=== PATIENT | male | born 1950 | race Caucasian/White ===

== ENCOUNTER 2019-02-17 13:54 | Outpatient (CLI) ==
[2019-02-17 18:08] VITALS: BMI 39.6
== END 2019-02-17 13:58 | disposition critical access hospital (66) ==
LOC: AMBL 13:54
PROVIDERS: ATTEND Emergency Medicine
DX: R06.9 Unspecified abnormalities of breathing (principal); R53.1 Weakness; M54.5 Low back pain; G89.29 Other chronic pain; R63.0 Anorexia; R00.0 Tachycardia, unspecified; E11.65 Type 2 diabetes mellitus with hyperglycemia

== ENCOUNTER 2019-02-17 14:06 | Observation (INO) | payer OTHER ==
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
[2019-02-17] MEDS ORDERED: CATAPRES PO STA (15:17)
[2019-02-17] MEDS ORDERED: DUONEB NEB STA (15:18)
--- NOTE | 2019-02-17 15:40 | DI ---
EXAM: Chest two views HISTORY: Shortness of breath, cough COMPARISON: None TECHNIQUE: Two views of the chest were performed FINDINGS: The lungs are clear. There is no pleural effusion or pneumothorax. The heart is normal i n size. The mediastinal contour is normal, noting atherosclerosis. There are no acute abnormalities of the bones. IMPRESSION: No acute cardiopulmonary process.
[2019-02-17 18:08] VITALS: BMI 39.6
[2019-02-17] MEDS ORDERED: METOPROLOL SUCCINATE 200 MG PO SCH (21:30)
[2019-02-17] MEDS ORDERED: NON-FORMULARY MEDICATION (Metoprolol Succinate [Metoprolol Succinate] 100 MG) PO SCH (22:15)
[2019-02-17] MEDS ORDERED: TOPROL XL PO SCH (22:30)
[2019-02-18] MEDS ORDERED: NON-FORMULARY MEDICATION (Glipizide [Glipizide] 10 MG) PO SCH (06:30)
[2019-02-18] MEDS ORDERED: NON-FORMULARY MEDICATION (Metformin Hcl [Metformin Hcl] 500 MG) PO SCH (08:00)
[2019-02-18] MEDS ORDERED: FLUTICASONE FUROATE IH SCH (09:00)
[2019-02-18] MEDS ORDERED: NON-FORMULARY MEDICATION (Furosemide [Furosemide] 40 MG) PO SCH ×2 (09:00→14:00)
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
[2019-02-18] MEDS: NON-FORMULARY MEDICATION (Albuterol Sulfate [Proair Hfa] 2 PUFF) IH PRN ×2 (09:30→17:18)
[2019-02-18] MEDS: DIVALPROEX SODIUM 500 MG PO SCH ×2 (09:30→20:57)
[2019-02-18] MEDS: LEVOTHYROXINE SODIUM 50 MCG PO SCH (09:32)
[2019-02-18] MEDS: NON-FORMULARY MEDICATION (Metoprolol Succinate [Metoprolol Succinate] 100 MG) PO SCH (09:33)
[2019-02-18] MEDS: AZELASTINE HCL NS SCH ×2 (09:35→20:56)
[2019-02-18] MEDS: NON-FORMULARY MEDICATION (Glipizide [Glipizide] 10 MG) PO SCH ×2 (09:35→17:04)
[2019-02-18] MEDS: FLUTICASONE PROPIONATE NS SCH (09:36)
[2019-02-18] MEDS: NORVASC PO SCH (09:40)
[2019-02-18] MEDS: LOTENSIN PO SCH (09:41)
--- NOTE | 2019-02-18 09:59 | HP ---
DATE OF SERVICE: 02/17/19 SOURCE OF HISTORY: The patient is not able to give good details of the history. HISTORY OF PRESENT ILLNESS: I asked him why he ended up in the emergency room and he told me that he had been in the room for the last five days and had not had any food. He was told not to get out of the room. He did not have any oxygen already at home as well as some of his medications. I told him how he got in touch with Destini and he told me that he called all the numbers and he has listed it down. He had called Medicare, Medicaid and ended up with Destini Robbie. The name of the individual that was attached to Destini Avalos is Simona. He was given a calling card and the sap manager was Radha. Destini Avalos was supposed to come tomorrow but boyfriend of his daughter was going to throw him out of the house and so she did come to the house. He seemed to have some altercation or exchange of words with the boyfriend of the daughter, Balbina Singletary and so the Destini Avalos individual did call the police. This patient was then brought to the emergency room. I asked him why he did not take his medications but he told me that his medications had to be taken with food and he didn't have any food for the last five days. He survived on poptarts as well as koolaid. The patient had a chest x-ray in the emergency room showing no acute cardiopulmonary processes. Blood pressure was quite elevated 222/120. Labs showed moderate anemia, 11.8 gm of hemoglobin, hematocrit 36.8, MCV 81.2, MCH 26 , RDW 13.4, platelet count normal 325,000, WBC 6,910. Electrolytes are acceptable although slightly below normal. BUN 5.7, creatinine 0.49, estimated GFR 170, blood sugar 155. NT-Pro-BNP normal, procalcitonin less than 0.05. Amylase normal. Influenza A and B was negative. The patient was given Clonidine because of the hypertension 0.1 mg p.o. and Duoneb nebulizer once. He was then admitted. PAST PERSONAL HISTORY: The patient claimed to be diagnosed with diabetes more than 10 years ago, hypertension several years ago, hypothyroidism, dyslipidemia, seizure disorder, COPD, GERD, headaches and coma, unsure why he was in a coma. He fell against a bulldozer and had injury to the right knee as well as right ankle fracture. The ankle fracture was treated with open reduction/internal fixation and the right knee was treated with arthroscopic examination. The patient also admitted to smoking and stopped when he was 17 years of age because of hemoptysis. Also had abused alcohol as well as drugs and was placed on rehab but did not stay. FAMILY HISTORY: Father had carcinoma of the intestine as well as diabetes. Mother also had carcinoma of the breast as well as diabetes. SOCIAL HISTORY: The patient's status is or single is not quite clear. He said he had been several times and had not had a permanent address. He was and had two children, both of them were girls and they are now in [facility] and he does not have any communication with them. No communication with the mother of all the children. He again got and had two children, a boy and a girl. The girl is Balbina, lives in [place] and one is in [place], a boy. His ex- lives in [place]. His ex- and Balbina, his daughter, have no communications with each other. He recently moved to [place] from around [place], [place] and is a town nearby. He resided with his mother until his mother and some three months ago. His daughter invited him to come down and indeed drove him down with his belongings. The son who lives in [place]. I advised him not to come down since his son had lived with them before some time ago. He came to [place] about two weeks ago or thereabouts and then the last five days he was told to stay in the room and never to get out. He claimed that he did not have adequate food and survived on Poptarts as well as Koolaid. At this point, I was interrupted by the nurse, Kaelyn, that Mr. Singletary son is on the phone. The son wanted to know whether his father was admitted but he did not want to talk to him. Kaelyn did ask the father whether she could talk to him as well as me and Mr. Singletary did give verbal permission. I did talk to the son and his name is Balta Rodriguez and did ask him why his last name is different and he told me that his mother got to Mr. Singletary and his sister is a biological daughter of Mr. Singletary with his mother. I also tried to verify the story that Mr. Singletary told me that his son, Balta lived with his sister and advised him not to come down when he was invited by his sister to come down. He told me that his son is now in [place]. I did try to verify that and asked him what part of [place] he lives and he said he is in [facility]. His name is Balta Rodriguez but the phone ID is Arian Montes. Balta did give me the phone number of his aunt, Rae [phone]. I asked Kaelyn to ask Mr. Singletary if it is okay to talk to his sister and again, he gave verbal consent to that. I asked Balta where his mother is and he thought his mother lives in [place] but Mr. Singletary said that his ex- is in [place]. I informed Balta that it would be hard for Mr. Singletary to take public transportation she he is not able to walk and too, he has oxygen. He told me that someone would have to come and pick him up and that is when he gave me the phone number of his aunt and he said his uncle can pick him up and I told him that Mr. Singletary told me that his brother does not have a license and Balta told me that that is not the uncle that he is thinking about. MEDICATIONS: (PRIOR TO ADMISSION - READING FROM THE LIST OF MEDICATION HE HAD, WAS PRINTED 01/08/19 @ 257 P.M., SOURCE i DON'T KNOW) Albuterol SFA two puffs every 4 to 6 hours as needed for wheezing, Amlodipine/ Benazepril 10-40 one cap daily, Lipitor 20 mg daily, Azelastine nasal spray 0.1 % one spray two each nostril twice a day, Clotrimazole 10 mg lozenge take one by mouth three times a day, Depakote delayed release one twice a day, Nexium 40 mg capsule daily, Fluticasone 50 mcg two spray to the nostril one time a day, Lasix 40 mg daily, Glipizide 10 mg twice a day before meals, Levothyroxine 50 mcg daily, Magnesium Oxide 400 mg twice a day, Metformin 500 mg twice a day, Metoprolol Succinate 200 mg a day, multivitamins with minerals one daily, Orphenadrine 100 mg ER q.12hr, Sodium Chloride nasal spray 0.65% p.r.n. The patient did run out of some of the medication marked "X" out, multivitamins, Metoprolol, Glipizide, Furosemide, Lipitor, Amlodipine plus Benazepril. ALLERGIES: ASPIRIN REVIEW OF SYSTEMS: CONSTITUTIONAL: The patient had no fever, no chills. Significant fatigue although he had not been eating regular meals for the last four to five days according to him. LANDSCAPING SPECIALIST: The patient had some headaches, intermittent. No syncopal episode although he had a history of coma, cause unknown, history of seizure but not seizure activity this time. VISUAL: Denies any double vision or transient loss of vision. AUDITORY: The patient is able to hear well and denies any tinnitus, pain or drainage. RESPIRATORY: The patient has cough, repetitive, maybe post nasal drainage. Denies any sore throat. No hemoptysis. The patient does have shortness of breath. The patient was diagnosed to have COPD. Also possible asthma. CARDIOVASCULAR: Denies any chest pain or chest tightness or oppression. No nausea. GASTROINTESTINAL: The patient claimed to have some difficulty swallowing food and had been for several months. He claims that he has to grind the meat. He was eating before swallowing. His doctor had known of this and began to make some diagnostic exams but had not been completed. I asked him if he had lost any weight since the problem and he told me that he did lose some. This patient 's BMI is still high at 39.6. We can get some records from the doctors tomorrow then we can probably ask also on his weight, maybe one year ago. GENITOURINARY: The patient denies any pain on urination or urgency. MUSCULOSKELETAL: The patient does have pain in the knee as well as the ankle from previous injury., He had fracture of the lower leg to the ankle on the right side and injury several years ago and was treated with open reduction with internal fixation and also arthroscopic procedure on the right knee. The patient has some back problems. He uses a walker to help ambulate. INTEGUMENT: The patient does not have any rash or pruritus but has discoloration of the lower third of the leg just above the ankle, more discolored on the right than the left. There are no ulcerations noted. ENDOCRINE: Denies any polyuria or polydipsia. The patient however had been diagnosed with diabetes mellitus more than 10 years ago. HEMATOLOGIC: Denies any prolonged bleeding or spontaneous bleeding. No spontaneous ecchymosis. PSYCHIATRIC: Affect is normal. The patient admits to being claustrophobic. He seemed to be verbal and is more or less talking continuously. PHYSICAL EXAMINATION: GENERAL: 68-year-old male admitted to the hospital for 1) hypertension, that is uncontrolled; 2) he has not been able to take his medications, situational problems at home, shortness of breath. The patient did run out of his oxygen at home. History and physical obtained was in the presence of the registered nurse, Nelda. VITAL SIGNS: On admission to the floor, 5:38 p.m. on 02/17/19: Temperature 98.3 oral, pulse 100, blood pressure 172/82, was given Clonidine 0.1 mg p.o. in the emergency room. Respiratory rate 20. Oxygen saturation 91 on room air. He was weighed at 260 lbs and 11.2 ozs. Height was provided by him. BMI 39.6. HEAD: Unremarkable. Scalp: No active dermatitis. Face: Symmetrical and equal with no facial weakness and no redness. The frontal and maxillary sinus areas are nontender to palpation and/or pressure. EYES: Pupils equal/reactive to light about 5 mm in size and round. Conjunctivae somewhat pale. Sclerae not icteric. MOUTH: Unremarkable. THROAT: No inflammation, no exudate. NECK: No masses. No bruit. No remarkable. tenderness. CHEST: Essentially symmetrical and equal with good expansion. LUNGS: Breath sounds are diminished on both sides with expiratory wheezing and/ or rales. HEART: Audible, slightly irregular and no murmurs. . ABDOMEN: Protuberant, soft with no remarkable tenderness. No guarding. Bowel sounds are active. No masses palpable. EXTERNAL GENITALIA: Not examined. RECTAL: Not performed. LOWER EXTREMITIES: Essentially symmetrical and equal with some edema, minimal of both legs with marked discoloration of lower third of the legs more on the right than the left probably secondary to venous congestion. Pedal pulses are absent. UPPER EXTREMITIES: Symmetrical and equal. ASSESSMENT: 1. HYPERTENSION, UNCONTROLLED. 2. DIABETES MELLITUS, UNCONTROLLED. 3. PROBLEMS OBTAINING AND TAKING MEDICATIONS FOR HIS PROBLEMS. 4. RESIDENTIAL DIFFICULTIES. 5. HISTORY OF COPD. 6. HISTORY OF ASTHMA, QUESTIONABLE. 7. HISTORY OF SEIZURE DISORDER. 8. HISTORY OF GERD. 9. HISTORY OF HYPERTHYROIDISM. 10. HISTORY OF DYSLIPIDEMIA. 11. HISTORY OF MIGRAINE. 12. EPISODE OF COMA, THE PATIENT DOES NOT KNOW WHY. 13. HISTORY OF RIGHT ANKLE FRACTURE TREATED WITH OPEN REDUCTION WITH INTERNAL FIXATION, RIGHT KNEE INJURY, TREATED WITH ARTHROSCOPIC PROCEDURE. 14. PERIPHERAL ARTERIAL DISEASE, ABSENT TIBIAL PULSES. BILATERAL LOWER LEG DISCOLORATION PROBABLY SECONDARY TO VENOUS INSUFFICIENCY. 15. ELEVATED BMI 39.6. 16. HISTORY OF DYSPHAGIA. HE TOLD ME THAT A DOCTOR TRIED TO HAVE A BARIUM EXAMINATION AND THE BARIUM WAS NOT GOING THROUGH AND VOMITS OR COMES BACK UP. IF THAT IS TRUE, THIS PATIENT WOULD HAVE LOST A SIGNIFICANT AMOUNT OF WEIGHT SINCE IT HAD BEEN ONGOING FOR SEVERAL MONTHS. THIS PATIENT HOWEVER NEEDED TO BE INVESTIGATED BUT SINCE HE IS GOING BACK [place] THAT HE SHOULD HAVE AND THIS WILL BE EXPLAINED TO HIM THAT HE SHOULD GET IN TOUCH WITH THE DOCTOR THAT HE WAS GOING TO BEFORE. PROGNOSIS: GUARDED TIME SPENT: GREATER THAN 65 MINUTES MTDD
[2019-02-18] MEDS ORDERED: LASIX TAB PO SCH (12:30)
[2019-02-18] MEDS: LASIX TAB PO SCH (13:43)
[2019-02-18] MEDS: NON-FORMULARY MEDICATION (Metformin Hcl [Metformin Hcl] 500 MG) PO SCH (17:11)
[2019-02-19] MEDS: LASIX TAB PO SCH (05:56)
[2019-02-19] MEDS: LEVOTHYROXINE SODIUM 50 MCG PO SCH (05:56)
[2019-02-19] MEDS: NON-FORMULARY MEDICATION (Glipizide [Glipizide] 10 MG) PO SCH (09:25)
[2019-02-19] MEDS: NORVASC PO SCH (09:25)
[2019-02-19] MEDS: LOTENSIN PO SCH (09:25)
[2019-02-19] MEDS: NON-FORMULARY MEDICATION (Metoprolol Succinate [Metoprolol Succinate] 100 MG) PO SCH (09:26)
[2019-02-19] MEDS: DIVALPROEX SODIUM 500 MG PO SCH ×2 (09:26→20:27)
[2019-02-19] MEDS: AZELASTINE HCL NS SCH ×2 (09:27→20:26)
[2019-02-19] MEDS: FLUTICASONE PROPIONATE NS SCH (09:27)
[2019-02-19] MEDS: NON-FORMULARY MEDICATION (Metformin Hcl [Metformin Hcl] 500 MG) PO SCH ×2 (09:31→16:29)
--- NOTE | 2019-02-19 14:23 | PN ---
DATE OF SERVICE: 02/18/19 SUBJECTIVE: Overall the patient is doing much better. His appetite is very well. Dr. Menard did speak with his son about a discharge plan. His vital signs are improving at 4:53 a.m. today. His temperature was 97.6, pulse rate 66, blood pressure 172/ 100. His 02 sat was 99% on 2L/NC. At 10 a.m. his blood pressure had come down to 180/90 with a pulse rate of 80. His lungs were clear but diminished. His heart rate was regular normal sinus rhythm. His lower extremities are chris - this is chronic for him. He does have 1+ edema which is chronic. Dr. Ramirez does plan to do a Dobutamine stress echo on 02/19/18 to further evaluate chest pain. Dr. Menard did discuss a discharge plan with Case Management and she does plan to call the sister today to further evaluate regarding a discharge plan. JESSY
[2019-02-19] MEDS: NON-FORMULARY MEDICATION (Esomeprazole Magnesium [Nexium] 40 MG) PO SCH (16:28)
[2019-02-19] MEDS: NON-FORMULARY MEDICATION (Albuterol Sulfate [Proair Hfa] 2 PUFF) IH PRN (18:22)
[2019-02-19] MEDS: K-DUR PO SCH (20:26)
[2019-02-20] MEDS: LASIX TAB PO SCH (05:57)
[2019-02-20] MEDS: LEVOTHYROXINE SODIUM 50 MCG PO SCH (05:58)
[2019-02-20] MEDS: NON-FORMULARY MEDICATION (Esomeprazole Magnesium [Nexium] 40 MG) PO SCH (05:58)
[2019-02-20] MEDS ORDERED: ATROPINE SULFATE PFS ONE (07:07)
[2019-02-20] MEDS ORDERED: DOBUTAMINE 500 MG-D5W 250 ML 250 ML IV ONE (07:07)
[2019-02-20] MEDS ORDERED: NON-FORMULARY MEDICATION (Glipizide [Glipizide] 10 MG) PO SCH (08:00)
--- NOTE | 2019-02-20 09:20 | DOBSTECHST ---
Ordering Physician: DR. RODRIGUEZ Date of Test: 02/20/2019 Reason for Examination: CHEST PAIN, HYPERTENSION Smoking History: QUIT AT 17YR OLD Height: 68" Weight: 260 Current Medications: FLONASE, ORPHENADRINE CITRATE, MULTIVITAMIN, METOPROLOL SUCCINATE, METFORMIN HCL, MAGNESIUM OXIDE, LEVOTHYROXINE SODIUM, GLOPIZIDE, FUROSEMIDE, NEXIUM, DIVALPROEZ SODIUM, CLOTRIMAZOLE, PROAIR HFA, ASTELIN, ATORVASTATIN CALCIUM, AMLODIPINE BESYLATE/BENAZEPRIL Target Heart Rate: 130 / 154 SaO2: 97% AT REST ON 2LPM GLAUCOMA: NOT SURE S-T Segment Stage Time HR BPM BP MMHG Rhythm +/- Elevation Depression Symptoms Control Sitting 73 124/80 SR X NONE Dobutamine 250mg/D5W 5cmg/KG/mn 10cmg/KG/mn 3" 82 138/60 SR X NONE 15cmg/KG/mn 2" 96 148/52 SR X NONE 20cmg/KG/mn 2" 107 148/52 SR X NONE 25cmg/KG/mn 2" 104 138/56 SR X NONE 30cmg/KG/mn 1:35 104 SR X NONE 35cmg/KG/mn 40cmg/KG/mn 2 MIN POST INFUSION z 99 SR X NONE 5 MIN POST INFUSION z 98 116/58 SR X NONE DURATION OF INFUSION 10 MINUTES AND 35 SECONDS MAXIMUM HEART RATE REACHED 111 98% OXYGEN SATURATION ON 2LPM WITH DOBUTAMINE INFUSION Interpretation: 1. BORDERLINE ISCHEMIA BY ST-T WAVE CHANGES FROM RESTING HEART RATE OF 73BPM RESTING TO 111 BPM WITH DOBUTAMINE INFUSION 2. NO CHEST PAIN OR DISCOMFORT 3. LEFT VENTRICULAR CONTRACTILITY RESTING AND WITH DOBUTAMINE INFUSION-NORMAL 4. SESTAMIBI TO FOLLOW MTDD
--- NOTE | 2019-02-20 09:24 | ECHO2D ---
Date of Exam: 02/19/2019 Ordering Physician: DR. RODRIGUEZ Room #: 119 Reason for Echo: CHEST PAIN, HYPERTENSION M-Mode Normal Adult Results LV Dimensions Normal Adult Results AoV Opening excursions >1.6 >1.6 LVEDD-base- 3.5-5.8 4.3 Ao root dimensions 2.0-3.7 3.7 LVESD-base- 3.1-4.6 L. Atrium dimensions 1.9-3.8 4.7 Post. Wall thickness 0.8-1.1 1.5 IV septum (thickness) 0.7-1.2 1.6 Post. Wall excursion 0.72-1.3 NORMAL Septal motion NORMAL Systolic motion R. Ventricular cavity 1.5-2.0 NORMAL LVEF 60% 66% Paradoxical septal wall motion NORMAL 2-D : ENLARGED LEFT ATRIAL CAVITY OTHERWISE NORMAL 2-D M Mode Echocardiogram was performed using apical four chamber and left parasternal long and short axis views. Mitral, tricuspid and aortic valves appear to be normal. Contractility of the left ventricle seems to be normal, so is the cavity size. Enlarged left atrial cavity size. Aortic root appears to be normal. There is no pericardial effusion. There is no thrombus noted in the left ventricular or left aortic cavity. No mitral valve prolapse noted. M-MODE: MV: NORMAL AV: NORMAL TV: NORMAL PV: CHAMBER SIZE: ENLARGED LEFT ATRIAL CAVITY WALL MOTION: NORMAL PERICARDIUM: NORMAL INTERPRETATION: 1. MODERATE LEFT VENTRICULAR HYPERTROPHY WITH ENLARGED LEFT ATRIAL CAVITY 2. NORMAL LEFT VENTRICULAR CONTRACTILITY 3. NORMAL VALVES MTDD
--- NOTE | 2019-02-20 09:27 | ECHOSTRESS ---
Date of Exam: 02/20/2019 Ordering Physician: DR. RODRIGUEZ Reason for Echo: CHEST PAIN, HYPERTENSION, DOBUATMINE STRESS=BORDERLINE ISCHEMIC ST-T WAVE CHANGES M-Mode Normal Adult Results LV Dimensions Normal Adult Results AoV Opening excursions >1.6 LVEDD-base- 3.5-5.8 Ao root dimensions 2.0-3.7 LVESD-base- 3.1-4.6 L. Atrium dimensions 1.9-3.8 Post. Wall thickness 0.8-1.1 IV septum (thickness) 0.7-1.2 Post. Wall excursion 0.72-1.3 Septal motion Systolic motion R. Ventricular cavity 1.5-2.0 LVEF 60% Paradoxical septal wall motion 2-D: NORMAL LEFT VENTRICULAR CONTRACTILITY RESTING AND WITH DOBUTAMINE INFUSION M-MODE: MV: AV: TV: PV: CHAMBER SIZE: WALL MOTION: NORMAL LEFT VENTRICULAR CONTRACTILITY RESTING AND WITH DOBUTAMINE INFUSION PERICARDIUM: INTERPRETATION: 1. NORMAL LEFT VENTRICULAR CONTRACTILITY RESTING AND WITH DOBUTAMINE INFUSION MTDD
[2019-02-20] MEDS: K-DUR PO SCH (10:03)
[2019-02-20] MEDS: LOTENSIN PO SCH (10:03)
[2019-02-20] MEDS: NORVASC PO SCH (10:03)
[2019-02-20] MEDS: AZELASTINE HCL NS SCH ×2 (10:04→21:20)
[2019-02-20] MEDS: FLUTICASONE PROPIONATE NS SCH (10:04)
[2019-02-20] MEDS: NON-FORMULARY MEDICATION (Metoprolol Succinate [Metoprolol Succinate] 100 MG) PO SCH (10:05)
[2019-02-20] MEDS: DIVALPROEX SODIUM 500 MG PO SCH ×2 (10:06→21:20)
[2019-02-20] MEDS: NON-FORMULARY MEDICATION (Metformin Hcl [Metformin Hcl] 500 MG) PO SCH (10:07)
--- NOTE | 2019-02-20 10:36 | NM ---
Exam: Cardiac stress test with SPECT imaging. Reason for exam: Chest pain with hypertension Comparison: None. Date of exam: 02/20/2019 Radiopharmaceutical: Rest: 12.5mCi Tc-99m Sestamibi i.v. Stress: 33.0mCi Tc-99m Sestamibi i.v. Dobutamine stress FINDINGS: Standard myocardial perfusion images were obtained after injection of technetium 99m sesta mibi under resting conditions The patient was then stressed with Dobutamine IV. Please see separate report by performing physician for details of the stress protocol Standard myocardial perfusion images were obtained after injection of technetium 99m sestamibi under stress conditions. Gated images were performed to evaluate left ventricular ejection fraction The stress perfusion images demonstrate a small region of mild to moderately decreased radiopharmaceu tical uptake in the inferior wall. The rest perfusion images demonstrate a small region of mildly decreased radiopharmaceutical uptake i n the inferior wall The left ventricular ejection fraction is calculated to be 77%. Impression: 1. There is a small region of mild severity, mostly reversible ischemia in the inferior wall that ma y be accentuated by technique. 2. Left ventricular ejection fraction measures 77%.
[2019-02-20] MEDS ORDERED: NITROSTAT SL PRN (12:39)
--- NOTE | 2019-02-20 13:25 | PN ---
DATE OF SERVICE: 02/19/19 SUBJECTIVE: The only complaints today is that he had reflux and requests for his Nexium to be restarted. He admits that he was not able to eat his lunch today because his reflux is so bad. His previous home medications were reviewed and he previously took Nexium 40 mg p.o. daily and he requested this to be restarted back. He did have blood work completed yesterday morning. He did not have any blood work done this morning. His hemoglobin/hematocrit was stable yesterday morning 11.3 and 34.8 and yesterday his BUN was 5.3, creatinine 0.53. His TSH yesterday was 7.30, however it was noted upon H & P that he had not been taking his medicines routinely as he was not able to. It will be recommended that TSH level be rechecked as an outpatient. OBJECTIVE: V/S: Temperature 97.6, pulse rate 70, blood pressure 146/75, 02 sat 100% on 2L/ NC. On exam today, he does have some faint congestion in the upper lobes. He does admit this is chronic for him. He tells me today that he was able to walk in the hallway without his oxygen and his oxygen level stayed in the upper 90's. He denies any increasing shortness of breath. He would like a puff of his Albuterol inhaler and I will let the nurse know about this. His heart is regular rate and rhythm. He does have some chronic lower extremity edema, bilateral lower extremities and his lower extremities are chris in appearance. The plan is for the patient to be transported by his niece, Payton, on Saturday to [place], [place] and this was told to me this morning by Dr. Menard. [facility]ALTH[facility]iana
[2019-02-20] MEDS: NON-FORMULARY MEDICATION (Metformin Hcl [Metformin Hcl] 1,000 MG) PO SCH (16:43)
[2019-02-20] MEDS: NON-FORMULARY MEDICATION (Albuterol Sulfate [Proair Hfa] 2 PUFF) IH PRN (17:17)
[2019-02-20] MEDS ORDERED: TOPROL XL PO SCH (21:00)
[2019-02-21] MEDS: LASIX TAB PO SCH (06:03)
[2019-02-21] MEDS: LEVOTHYROXINE SODIUM 50 MCG PO SCH (06:04)
[2019-02-21] MEDS: NON-FORMULARY MEDICATION (Esomeprazole Magnesium [Nexium] 40 MG) PO SCH (06:04)
[2019-02-21 06:16] VITALS: TEMP 98.2
[2019-02-21 06:27] VITALS: BP 140/68
[2019-02-21] MEDS: NORVASC PO SCH (08:13)
[2019-02-21] MEDS: LOTENSIN PO SCH (08:13)
[2019-02-21] MEDS: K-DUR PO SCH (08:13)
[2019-02-21] MEDS: NON-FORMULARY MEDICATION (Metformin Hcl [Metformin Hcl] 1,000 MG) PO SCH (08:14)
[2019-02-21] MEDS: DIVALPROEX SODIUM 500 MG PO SCH (08:14)
[2019-02-21] MEDS: NON-FORMULARY MEDICATION (Metoprolol Succinate [Metoprolol Succinate] 100 MG) PO SCH (08:15)
[2019-02-21] MEDS: AZELASTINE HCL NS SCH (08:17)
[2019-02-21] MEDS: FLUTICASONE PROPIONATE NS SCH (08:17)
[2019-02-21] MEDS: NON-FORMULARY MEDICATION (Albuterol Sulfate [Proair Hfa] 2 PUFF) IH PRN (08:19)
--- NOTE | 2019-02-26 11:39 | PN ---
DATE OF SERVICE: 02/20/19 SUBJECTIVE: The patient today is alert and oriented times four. Not dyspneic or tachypneic. He is looking forward to going home the next day. He does know that his niece, Payton is coming to pick him up. The patient does not desire to proceed with a cardiac workup in [place]. He just wants to go back to his home place in [place], [place]. LUNGS: Clear to auscultation in both sides although diminished HEART: Audible most regular. No murmurs ABDOMEN: Nontender, protuberant. Bowel sounds are active LOWER EXTREMITIES: No tenderness in the calf muscles We will get a CBC and Chemistry for tomorrow to review that prior to his discharge. JESSY
--- NOTE | 2019-03-02 11:25 | DS ---
DATE OF SERVICE: 02/21/19 PATIENT IDENTIFICATION: 68-year-old male who has recently moved to [place] two to three weeks ago. His daughter did pick him up around [place], [place] and brought his furniture to move in with his daughter. His daughter has a boyfriend. Things had not been going well and he was told to stay in the room and that had been for five days and claimed to have survived only on poptarts plus koolaid. The patient had called several agencies including [facility]. The phone numbers were provided by the son, Balta, who resides in [place], [place]. [facility] was going to see him on a Saturday but he was going to be thrown out of the house the day before and so [facility] did come and the patient was transported by Police to the hospital. The patient while in the emergency was found to have a significant hypertension 220/120, alert, oriented times four without any headaches or visual disturbances. He also was not confused. He had mentioned some chest pain. Cardiology consultation was requested and was seen by the emergency management consultant the following day, 02/18/19. Past history is listed in the History and Physical. Physical examination revealed a 68-year-old male who is quite talkative. He has movement of all extremities and he has no facial weakness. He denies any visual disturbances. Lungs - breath sounds are diminished on both sides with expiratory wheezing and some rales. Heart is audible and slightly irregular. No murmurs. Abdomen markedly protuberant, soft with no remarkable tenderness, no masses. Bowel sounds are active. Some ankle edema bilaterally. Pedal pulses are absent. The patient's labs and workup during this admission: CBC times four since admission until the day of discharge showed normal WBC, moderate anemia, iron deficiency most likely. CMP times four slightly lower electrolytes but no clinical significance. Carbon dioxide was slowly increasing and was 34.3 on discharge, 02/21/19. BUN normal as well as creatinine and EGFR calculated changed from 137 to 170. Blood sugar on admission was 155 and subsequent fasting blood sugar was 130, 131.2 and 130.8. His hemoglobin A1C on admission was 7.94. Fasting insulin level 17.5, plasma C-peptide is 4.9. The rest of the chemistries were unremarkable or normal and the procalcitonin is less than 0.05. TSH 7.300. Urinalysis unremarkable except for 1+ ketones, trace sugar and protein. Drug screen negative. KALEN 65 autoantibody less than 5.0 and influenza A and B by nuclear amplification are negative. Chest x-ray showed no acute cardiopulmonary processes. M-Mode echo today showed left ventricular ejection fraction 66%, valves normal. Wall motion normal as well as pericardium, enlarged left atrial cavity. Interpretation moderate left ventricular hypertrophy with enlarged left atrial cavity, normal left ventricular contractility, normal valves. Dobutamine stress borderline ischemia by ST-T wave changes, resting heart rate 73 to 111 beats/min. No chest pain or discomfort. Resting and exercise perfusion showed increased uptake in the inferior wall. It appears that the ischemia is persistent. Our emergency management consultant epidemiology internship had recommended further studies such as cardiac catheterization and referral to an in service educator but the patient declined to follow the instructions for now. He wanted to go back to [place], [place]. I also repeated that with him in the presence of a nurse. He told me that he is not going to see a epidemiology internship here and have a cardiac catheterization. His niece, Payton, is coming up to pick him up and would be in town about 12 to . She indeed came in and I saw the patient close to one o'clock and the patient was discharged to go to [place] or around there. This patient was instructed to continue his previous medications, that he needs to see the doctor as soon as he gets to his hometown. He also was advised to stop along the way if he has any problems and go to the emergency room. The patient, at time of discharge, was alert, ambulatory, cooperative and cheerful. He has movement of all extremities. He is not dyspneic or tachypneic. The lungs are clear to auscultation and both sides diminished and no wheezing. The heart is audible and regular. Vital signs at 6 a.m. 02/21/19 blood pressure 140/68, pulse - no oxygen saturation done. The patient is using oxygen and has oxygen with him during transport or travel to [place]. The patient does not have any chest pain or abdominal pain. He had 100% breakfast and 100% of lunch. FINAL DIAGNOSES: 1. HYPERTENSION, IMPROVED CONTROL. 2. DIABETES MELLITUS, SLIGHTLY UNCONTROLLED. 3. BORDERLINE STRESS TEST, ST SEGMENT DEPRESSION. 4. ELEVATED BMI. 5. HISTORY OF ASTHMA. 6. HISTORY OF SEIZURE DISORDER. 7. HISTORY OF GERD. 8. HISTORY OF HYPOTHYROIDISM. 9. HISTORY OF MIGRAINE HEADACHE. 10. HISTORY OF COMA EPISODE, CAUSE UNDETERMINED, MIGHT HAVE BEEN A POST SEIZURE PROBLEM. 11. PERIPHERAL ARTERIAL DISEASE, ABSENT TIBIAL PULSES. 12. BILATERAL LEG DISCOLORATION SECONDARY TO VENOUS INSUFFICIENCY. PROGNOSIS: GUARDED TIME SPENT: GREATER THAN 30 MINUTES MTDD
--- NOTE | 2019-03-02 14:30 | CONS ---
CONSULT FOLLOWUP DATE OF SERVICE: 02/19/19 SUBJECTIVE: The patient was seen and examined today. He is feeling alot better. His blood pressure is under control with systolic of 142. The patient is intelligent but noncompliant of his lifestyle, medications and followups with his primary care physician. This morning he had an echocardiogram done which showed normal LV size, normal LV contractility with LVH, enlarged LA cavity. REVIEW OF SYSTEMS: CONSTITUTIONAL: No night sweats. No fatigue, malaise, lethargy. No fever or chills. HEENT: Eyes: No visual changes. No eye pain. No eye discharge. ENT: No runny nose. No epistaxis. No sinus pain. No sore throat. No odynophagia. No congestion. RESPIRATORY: No cough, no congestion. No hemoptysis. No shortness of breath. CARDIOVASCULAR: No angina symptoms. No CHF symptoms. No atypical chest pain for CAD. No palpitations. No PND. No orthopnea. GASTROINTESTINAL: No abdominal pain. No nausea or vomiting. No diarrhea or constipation. No hematemesis. No hematochezia. GENITOURINARY: No urgency. No frequency. No dysuria. No hematuria. No obstructive symptoms. No discharge. No pain. No significant abnormal bleeding. MUSCULOSKELETAL: No musculoskeletal pain; no joint swelling. NEUROLOGICAL: No headache. No neck pain. No syncope. No seizures. No dizziness. PSYCHIATRIC: Not anxious. No depression. No suicidal thoughts. No homicidal thoughts. SKIN: No rash. No lesions. No wounds. ENDOCRINE: No unexplained weight loss. No weight gain. HEMATOLOGIC/LYMPHATIC: No anemia. No purpura. No petechiae. No prolonged or excessive bleeding. No palpable lymph nodes. PHYSICAL EXAMINATION: HEENT: Head normocephalic, atraumatic. Eyes: Extraocular muscles are intact. Pupils are equal, round and reactive to light and accommodation. Ears: No lesions. Nose appeared normal. Throat: No exudate or erythema. NECK: Supple. No JVD, no carotid bruit. No lymphadenopathy or thyromegaly. LUNGS: Clear to auscultation. Percussion note normal. Chest symmetrical. HEART: S1, S2, no S3. No murmurs. No cyanosis or clubbing. No ascites. Pulses: Dorsalis pedis and posterior tibial pulses +1 to +2 bilaterally. ABDOMEN: Soft. Nontender. Bowel sounds active. No CVA tenderness. No mass felt. EXTREMITIES: No edema. Full range of motion of all extremities, equal. NEUROLOGIC: No focal deficit. Cranial nerves II through XII are grossly intact. No headache, no double vision or headache. SKIN: Not dry. Intact. Turgor - normal. LYMPHATIC: No palpable lymph nodes/no lymphedema. MUSCULOSKELETAL: Normal joints with no swelling. Muscle tone is normal. EKG unchanged. No acute changes. ASSESSMENT: 1. DIABETES MELLITUS 2. HYPERTENSION 3. DYSLIPIDEMIA 4. CHEST PAIN SEEMS TO BE NONCARDIAC PLAN: 1. Will evaluate chest pain with Dobutamine stress echo sestamibi tomorrow. Again, diabetes mellitus with its complications discussed. Counseling for smoking done. DASH diet discussed. ADA diet discussed for weight loss. Strongly advised to followup with his primary care wherever he goes. CONDITION: Stable TIME SPENT: More than 30 minutes. Plan and coordination of the patient's care discussed in the presence of nurse. JESSY
--- NOTE | 2019-03-02 14:54 | CONS ---
DATE OF CONSULTATION: 02/18/19 REASON FOR CONSULTATION: Hypertension, EKG changes and chest pain. HISTORY OF PRESENT ILLNESS: This is a 68-year-old male who was removed from home by [facility] after they were called by the patient. Per patient he was only given poptarts and koolaid and locked in a room. He is not taking meds (had but not taking due to not eating). REVIEW OF SYSTEMS: CONSTITUTIONAL: Weakness. No night sweats. No fatigue, malaise, lethargy. No fever or chills. HEENT: Eyes: No visual changes. No eye pain. No eye discharge. ENT: No sinus drainage. No epistaxis. No sinus pain. No sore throat. No odynophagia. No ear pain. No congestion. RESPIRATORY: Cough, shortness of air, uses inhaler. No congestion. No hemoptysis. CARDIOVASCULAR: No angina symptoms. No CHF symptoms. No atypical chest pain for CAD. No palpitations. No orthopnea. GASTROINTESTINAL: No abdominal pain. No nausea or vomiting. No diarrhea or constipation. No hematemesis. No hematochezia. GENITOURINARY: No urgency. No frequency. No dysuria. No hematuria. No obstructive symptoms. No discharge. No pain. No significant abnormal bleeding. MUSCULOSKELETAL: Osteoarthritis pain right knee, right ankle. NEUROLOGICAL: Intermittent headache. No neck pain. No syncope. No seizures. No dizziness. PSYCHIATRIC: Anxious. No depression. No suicidal thoughts. No homicidal thoughts. SKIN: Warm and dry. Dark discoloration and flaky skin lower extremities, ankles , worse on right. ENDOCRINE: No unexplained weight loss. No weight gain. HEMATOLOGIC/LYMPHATIC: No anemia. No purpura. No petechiae. No prolonged or excessive bleeding. No palpable lymph nodes. MEDICATIONS: ProAir HFA Amlodipine/Benazepril Atorvastatin Astelin Clotrimazole Divalproex Nexium Flonase Furosemide Glipizide Levothyroxine Mag Oxide Metformin Metoprolol MVI Orphenadrine Citrate ALLERGIES: ASA PAST MEDICAL/SURGICAL HISTORY: COPD Diabetes mellitus, Type 2 Hypertension Anxiety Right ankle surgery, pinning Right knee surgery Hypothyroid Seizures (Depakote) High lipids GERD SOCIAL/PERSONAL/FAMILY HISTORY: . Smoking history, stopped at age 17 years. Alcohol - yes, occasional. Multiple social issues involving daughter, her boyfriend, [employer] [place] [employer] and police. Family History: Father - cancer, diabetes mellitus. Mother cancer, diabetes mellitus, . PHYSICAL EXAMINATION: VITAL SIGNS: Pulse 66, BP 172/100, temperature 97.6, 02 sat 99% on 2L, weight 260, BMI 39.6. HEENT: Head normocephalic, atraumatic. Eyes: Extraocular muscles are intact. Pupils are equal, round and reactive to light and accommodation. Ears: No lesions. Nose appeared normal. Throat: No exudate or erythema. NECK: Supple. No JVD, no carotid bruit. No lymphadenopathy or thyromegaly. LUNGS: Decreased breath sounds. Clear to auscultation. Percussion note normal. Chest symmetrical. HEART: S1, S2, no S3. No murmurs. No cyanosis or clubbing. No ascites. Pulses: Dorsalis pedis and posterior tibial pulses normal. ABDOMEN: Soft. Nontender. Bowel sounds active. No CVA tenderness. No mass felt. EXTREMITIES: +2 edema. Pigmented skin. Full range of motion of all extremities , equal. NEUROLOGIC: No focal deficit. Cranial nerves II through XII are grossly intact. Intermittent headache, no double vision or headache. SKIN: Not dry. Intact. Turgor - normal. LYMPHATIC: No palpable lymph nodes/no lymphedema. MUSCULOSKELETAL: Normal joints with no swelling. Muscle tone is normal. LABS: WBC 6.91, hemoglobin 11.8, platelets 325, hematocrit 36.8. Sodium 132.9, chloride 95.1, BUN 5.7, glucose 155, K+3.43, c02 25.5, creatinine 0.49. A1C 7.94 , TSH 7.300. A1C 7.94, TSH 7.300. UA 1+ ketones, trace glucose. ASSESSMENT: 1. NON COMPLIANCE OF MEDS, DIET, LIFESTYLE AND FOLLOWUP. 2. SEVERE HYPERTENSION. 3. CHEST PAIN. 4. DIABETES MELLITUS TYPE 2. 5. DYSLIPIDEMIA. RECOMMENDATIONS: 1. Echocardiogram. 2. Dobutamine Stress Echo. 3. Decrease Amlodipine/Benazepril to 5/40 daily. 4. EKG - sinus rhythm, no acute changes, left ventricular hypertrophy. EDUCATION CARRIED OUT: Counseling for diet, lipids done. Diabetes mellitus Type 2 and its complications discussed with goals for A1C. DASH diet discussed. Goal of blood pressure 135/80 discussed. CAD discussed with symptoms. Thanks for referral, will follow. JESSY
--- NOTE | 2019-03-03 08:26 | CONS ---
DATE OF SERVICE: 02/20/19 CONSULT FOLLOWUP SUBJECTIVE: The patient is doing well, no chest pain. The patient in fact had no chest pain almost throughout the stay in the hospital. The patient's blood pressure seems to be well-controlled and he is already back on all his medications. The patient is oriented to time, place and person. He is very anxious to go back to [place] where he came from. He couldn't get along with his daughter and daughter's boyfriend. The patient's niece is coming to pick him up tomorrow. PHYSICAL EXAMINATION: HEENT: Head normocephalic, atraumatic. Eyes: Extraocular muscles are intact. Pupils are equal, round and reactive to light and accommodation. Ears: No lesions. Nose appeared normal. Throat: No exudate or erythema. NECK: Supple. No JVD, no carotid bruit. No lymphadenopathy or thyromegaly. LUNGS: Decreased breath sounds but clear to auscultation. Percussion note normal. Chest symmetrical. HEART: S1, S2, no S3. No murmurs. No cyanosis or clubbing. No ascites. Pulses: Dorsalis pedis and posterior tibial pulses +1 to +2 bilaterally. ABDOMEN: Soft. Nontender. Bowel sounds active. No CVA tenderness. No mass felt. EXTREMITIES: Trace to +1 pitting edema, chronic, less than before. Full range of motion of all extremities, equal. NEUROLOGIC: No focal deficit. Cranial nerves II through XII are grossly intact. No headache, no double vision or headache. SKIN: Not dry. Intact. Turgor - normal. LYMPHATIC: No palpable lymph nodes/no lymphedema. MUSCULOSKELETAL: Normal joints with no swelling. Muscle tone is normal. Education carried out about CAD and risk factors, diabetes and its complications. Strongly advised to have followup with his primary care. ASSESSMENT/PLAN: The patient underwent Dobutamine stress echo Sestamibi. Dobutamine was equivocal, borderline with no chest pain. LV contractility was normal resting and with Dobutamine infusion. Sestamibi showed small region of mild severity, reversible ischemia involving inferior wall. The patient seems to be asymptomatic at the present time. Medication changes were made. The patient is to take 100 mg Metoprolol in the morning and 50 at night. The patient was on 100 mg. His dose of Norvasc was reduced to 5. Continue Benazepril 40 mg, Nitroglycerin p.r.n. is added. The patient declined to take any Baby Aspirin or any form of blood thinner as he is allergic to blood thinners according to him especially aspirin. The patient again strongly advised to take his medications. The patient declined to have any further workup done in the way of cardiac catheterization or coronary angiogram. He says he is feeling a lot better. Less short of breath. Appetite has improved. He will likely go back to [place] and then followup on all the tests that have been done. The risk of not getting angiogram done sooner discussed with him, explained to him that he is high risk for coronary event. JESSY
--- NOTE | 2019-03-03 08:46 | CONS ---
DATE OF SERVICE: 02/21/19 CONSULT FOLLOWUP SUBJECTIVE: This is a 68-year-old white male hospitalized with hypertension, COPD, questionable chest pain. He was very vague about describing but in any case the patient has multiple CAD risk factors, poorly controlled because of the patient's noncompliance on followup medications, all aspects of medical care. The patient had positive Stress Sestamibi yesterday indicating reversiable ischemia on inferior wall. The patient once again explained about this finding and he doesn't want to stay here in this hospital and be transferred anywhere else for further investigation. The patient does not have any symptoms of CHF or coronary insufficiency. He is up and about practically asymptomatic. The patient is fairly intelligent, wants to go back to [place], [place] and his niece will be here today to pick him up. The patient's blood pressure is well controlled. The patient is doing well. REVIEW OF SYSTEMS: CONSTITUTIONAL: No night sweats. No fatigue, malaise, lethargy. No fever or chills. HEENT: Eyes: No visual changes. No eye pain. No eye discharge. ENT: No runny nose. No epistaxis. No sinus pain. No sore throat. No odynophagia. No ear pain. No congestion. RESPIRATORY: No cough, no congestion. No hemoptysis. CARDIOVASCULAR: No angina symptoms. No CHF symptoms. No atypical chest pain for CAD. No palpitations. No shortness of breath. GASTROINTESTINAL: No abdominal pain. No nausea or vomiting. No diarrhea or constipation. No hematemesis. No hematochezia. GENITOURINARY: No urgency. No frequency. No dysuria. No hematuria. No obstructive symptoms. No discharge. No pain. No significant abnormal bleeding. MUSCULOSKELETAL: No musculoskeletal pain. No joint swelling. No arthritis. NEUROLOGICAL: No headache. No neck pain. No syncope. No seizures. No dizziness. PSYCHIATRIC: Not anxious. No depression. No suicidal thoughts. No homicidal thoughts. SKIN: No rash. No lesions. No wounds. ENDOCRINE: No unexplained weight loss. No weight gain. HEMATOLOGIC/LYMPHATIC: No anemia. No purpura. No petechiae. No prolonged or excessive bleeding. No palpable lymph nodes. PHYSICAL EXAMINATION: VITAL SIGNS: Temperature 98.2, pulse 80, respiratory rate 24, BP 140/68, pulse ox 92% on room air. HEENT: Head normocephalic, atraumatic. Eyes: Extraocular muscles are intact. Pupils are equal, round and reactive to light and accommodation. Ears: No lesions. Nose appeared normal. Throat: No exudate or erythema. NECK: Supple. No JVD, no carotid bruit. No lymphadenopathy or thyromegaly. LUNGS: Decreased breath sounds but clear to auscultation. Percussion note normal. Chest symmetrical. HEART: S1, S2, no S3. No murmurs. No cyanosis or clubbing. No ascites. Pulses: Dorsalis pedis and posterior tibial pulses +1 to +2 bilaterally. ABDOMEN: Soft. Nontender. Bowel sounds active. No CVA tenderness. No mass felt. EXTREMITIES: No edema. Full range of motion of all extremities, equal. NEUROLOGIC: No focal deficit. Cranial nerves II through XII are grossly intact. No headache, no double vision or headache. SKIN: Not dry. Intact. Turgor - normal. LYMPHATIC: No palpable lymph nodes/no lymphedema. MUSCULOSKELETAL: Normal joints with no swelling. Muscle tone is normal. ASSESSMENT/RECOMMENDATIONS: Again, the patient is explained about all his medications. He will be on Metoprolol 100 q.a.m. and 50 at night. Norvasc is 5 mg daily. Metoprolol was increased to 1000 b.i.d. Glipizide has been discontinued. Continue the rest of the medications as before, that is Lasix, Benazepril 40, Levothyroxine and the rest of the medications as before. LABS: Today hemoglobin 12.1, hematocrit 38, WBC 7,700, normal differential, creatinine 0.5, BUN 10, potassium 4.1. TSH is borderline high but the patient has not been taking his medications. After he was started on 50 of Synthroid, his TSH was returned to normal. RECOMMENDATIONS: Strongly advised to followup with primary physician. Records will be transferred as soon as patient's request is submitted. He was explained this. Nursing staff was involved in that matter. CONDITION: Stable. MTDD
--- NOTE | 2019-03-03 08:48 | CONS ---
BILLING The patient was seen in consultation 3 to 4 times: 02/18/19 LEVEL 5 02/19/19 INTERMEDIATE 02/20/19 INTERMEDIATE 02/21/19 INTERMEDIATE MTDD
== END 2019-02-21 13:35 | disposition home or self-care (01) ==
LOC: ED 14:06 → MEDSURG B 17:06
PROVIDERS: ADMIT General Practice; ATTEND General Practice
DX: R07.81 Pleurodynia (principal); R05 Cough; R53.1 Weakness; R06.02 Shortness of breath; R06.2 Wheezing; J44.9 Chronic obstructive pulmonary disease, unspecified; I16.0 Hypertensive urgency; E11.9 Type 2 diabetes mellitus without complications
CPT/HCPCS: 36415; 80053; 80306; 81001; 82150; 82962; 83036; 83519; 83525; 83735; 83880; 84145; 84443; 84681; 85025; 85651; 87040; 87502; 87651; 93005; 93010; 94640; 99284